=== PATIENT | male | born 1985 | race Caucasian/White ===

== ENCOUNTER 2020-06-28 12:00 | Emergency (ER) | payer MEDICAID ==
[~2020-06-28] VITALS: Ht 170.2 cm; Wt 68.9 kg
[2020-06-28 12:16] VITALS: BP 128/78; Ht 170.2 cm; Wt 68.9 kg
[2020-06-28] MEDS ORDERED: MOT600 PO (13:10)
== END 2020-06-28 13:23 | disposition home or self-care (01) ==
LOC: ED 12:00
DX: S51.811A Laceration without foreign body of right forearm, initial encounter (principal); W26.0XXA Contact with knife, initial encounter; Y93.89 Activity, other specified; Y92.89 Other specified places as the place of occurrence of the external cause; Y99.8 Other external cause status
CPT/HCPCS: J2001